=== PATIENT | female | born 1990 | race African-American/Black ===

== ENCOUNTER 2022-09-01 21:45 | Emergency (ER) | payer MEDICAID, OTHER ==
[~2022-09-01] VITALS: Ht 157.5 cm; Wt 162.2 kg
[2022-09-02 09:56] LABS: BASOPHILS % 0.6 % (0.0-2.0); EOSINOPHILS % 0.9 % (0.0-5.0); HEMOGLOBIN. 10.2 g/dL (12.0-16.0); LYMPHOCYTES % 18.5 % (20.0-50.0); MEAN CORPUSCULAR HEMOGLOBIN 24.3 pg (28.0-32.0); MEAN CORPUSCULAR VOLUME 78.7 fL (81.0-99.0); MEAN PLATELET VOLUME 10.3 fl (7.4-10.4); MONOCYTES % 7.3 % (2.0-8.0); NEUTROPHILS % 72.7 % (40.0-76.0); PLATELET 221 x1000/uL (130-400); RED CELL DISTRIBUTION WIDTH 14.6 % (11.6-14.6)
[2022-09-02 10:05] LABS: CHLORIDE 106 mEq/L (98-107)
[2022-09-02 10:29] LABS: B-HCG QUANTITATIVE 21147 mIU/mL (<3)
[2022-09-02 11:06] LABS: CLARITY URINE CLOUDY (CLEAR); COLOR URINE DARK YELLOW (YELLOW); KETONES URINE 2+ (NEGATIVE); LEUKOCYTE ESTERASE URINE 1+ (NEGATIVE); NITRITE URINE NEGATIVE (NEGATIVE); OCCULT BLOOD URINE NEGATIVE (NEGATIVE); PH URINE 5.5 (4.5-8.0); PROTEIN URINE TRACE (NEGATIVE); SPECIFIC GRAVITY URINE 1.038 (1.005-1.030)
[2022-09-02] MEDS ORDERED: CEPH500C2 MT (11:36)
[2022-09-02 12:21] VITALS: BP 137/69
== END 2022-09-02 12:20 | disposition home or self-care (01) ==
LOC: ER 21:45
DX: O36.8120 Decreased fetal movements, second trimester, not applicable or unspecified (principal); O23.42 Unspecified infection of urinary tract in pregnancy, second trimester; N39.0 Urinary tract infection, site not specified; B96.89 Other specified bacterial agents as the cause of diseases classified elsewhere; O09.32 Supervision of pregnancy with insufficient antenatal care, second trimester; O99.012 Anemia complicating pregnancy, second trimester; D64.9 Anemia, unspecified; Z3A.17 17 weeks gestation of pregnancy
CPT/HCPCS: 36415; 76805; 80053; 81003; 81025; 84702; 85025; 86850; 86900; 99284